=== PATIENT | male | born 1945 | race Hispanic/Latino ===

== ENCOUNTER 2020-11-20 16:18 | Emergency (ER) | payer MEDICARE ==
--- NOTE | 2020-11-20 18:09 | Emergency Department Report ---
HPI - General Chief Complaint: Altered Mental Status Time Seen by Provider: 11/20/20 17:48 - HPI HPI: Room 34 The patient is a 75-year-old male present with a chief complaint of fall headache and diarrhea. The patient is a poor historian and family is concerned about the onset of dementia. The patient's states he EMS was called today because the patient fell in the bathroom and they were unable to get him up. She states there was no loss of consciousness but the patient did have episodes of nausea and vomiting while on the floor. The states the patient was complaining of a headache today before the fall. The patient acknowledges this states he currently does not have a headache. The patient states he does not know why he was sent to the emergency department. Patient states he does not recall a fall earlier today. also notes the patient has had diarrhea for the past 2 to 3 months. There is been no history of fever or recent antibiotic use. Patient denies pain of any type currently. Of note the patient was recently diagnosed with a pituitary tumor and was told was too small to do anything about at this moment so it is just being observed ED Past Medical Hx - Past Medical History Previous Medical History?: No - Surgical History Past Surgical History?: No - Family History Family history: no significant - Social History Smoking Status: Never Smoker Substance Use Type: None - Medications Home Medications: Home Medications Medication Instructions Recorded Confirmed Last Taken Type Diphenoxylate/Atropine [Lomotil] 2 tab PO QID PRN #40 tablet 11/20/20 Unknown Rx levoFLOXacin [Levaquin TAB] 500 mg PO QDAY #10 tablet 11/20/20 Unknown Rx ED Review of Systems ROS: Stated complaint: DIAHERRA/DEHYDRATION Other details as noted in HPI Constitutional: denies: fever Eyes: denies: eye pain ENT: denies: throat pain Respiratory: no symptoms reported Cardiovascular: denies: chest pain Endocrine: no symptoms reported Gastrointestinal: nausea, vomiting, diarrhea. denies: abdominal pain Genitourinary: denies: dysuria Musculoskeletal: denies: back pain Neurological: headache Physical Exam - Physical Exam Vital Signs: Vital Signs 11/20/20 16:54 Temperature 97.9 F Pulse Rate 72 Respiratory 18 Rate Blood Pressure 140/83 O2 Sat by Pulse 97 Oximetry Physical Exam: GENERAL: The patient is well-developed well-nourished male lying on stretcher not appearing to be in acute distress. [] HEENT: Normocephalic. Atraumatic. Extraocular motions are intact. Patient has moist mucous membranes. NECK: Supple. Trachea midline CHEST/LUNGS: Clear to auscultation. There is no respiratory distress noted. HEART/CARDIOVASCULAR: Regular. There is no tachycardia. There is no gallop rub or murmur. ABDOMEN: Abdomen is soft, nontender. Patient has normal bowel sounds. There is no abdominal distention. SKIN: There is no rash. There is no edema. There is no diaphoresis. NEURO: The patient is awake, alert, and oriented. The patient is cooperative. The patient has no focal neurologic deficits. The patient has normal speech. Cranial nerves II through XII grossly intact MUSCULOSKELETAL: There is no evidence of acute injury. ED Course Vital Signs 11/20/20 16:54 Temperature 97.9 F Pulse Rate 72 Respiratory 18 Rate Blood Pressure 140/83 O2 Sat by Pulse 97 Oximetry ED Medical Decision Making - Lab Data Result diagrams: 11/20/20 18:06 11/20/20 18:06 Laboratory Tests 11/20/20 11/20/20 11/20/20 18:06 18:06 18:06 WBC 18.3 H RBC 5.83 H Hgb 17.6 H Hct 52.1 H MCV 89 MCH 30 MCHC 34 RDW 14.7 Plt Count 232 Lymph % (Auto) 8.9 L [place] % (Auto) 5.0 Eos % (Auto) 0.5 Baso % (Auto) 0.8 Lymph # (Auto) 1.6 [place] # (Auto) 0.9 H Eos # (Auto) 0.1 Baso # (Auto) 0.1 Seg Neutrophils % 84.8 H Seg Neutrophils # 15.5 H PT 13.3 INR 1.02 APTT 28.7 Sodium 138 Potassium 4.2 Chloride 103.0 Carbon Dioxide 24 Anion Gap 15 BUN 17 Creatinine 1.2 Estimated GFR 59 BUN/Creatinine Ratio 14 Glucose 203 H Calcium 9.1 Total Bilirubin 0.70 AST 20 ALT 23 Alkaline Phosphatase 71 Total Protein 6.7 Albumin 4.0 Albumin/Globulin Ratio 1.5 Lipase 35 Urine Color Urine Turbidity Urine pH Ur Specific [place] Urine Protein Urine Glucose (UA) Urine Ketones Urine Blood Urine Nitrite Urine Bilirubin Urine Urobilinogen Ur Leukocyte Esterase Urine WBC (Auto) Urine RBC (Auto) Urine Bacteria (Auto) 11/20/20 23:01 WBC RBC Hgb Hct MCV MCH MCHC RDW Plt Count Lymph % (Auto) [place] % (Auto) Eos % (Auto) Baso % (Auto) Lymph # (Auto) [place] # (Auto) Eos # (Auto) Baso # (Auto) Seg Neutrophils % Seg Neutrophils # PT INR APTT Sodium Potassium Chloride Carbon Dioxide Anion Gap BUN Creatinine Estimated GFR BUN/Creatinine Ratio Glucose Calcium Total Bilirubin AST ALT Alkaline Phosphatase Total Protein Albumin Albumin/Globulin Ratio Lipase Urine Color Yellow Urine Turbidity Clear Urine pH 6.0 Ur Specific [place] 1.046 H Urine Protein 30 mg/dl Urine Glucose (UA) Neg Urine Ketones Neg Urine Blood Lg Urine Nitrite Neg Urine Bilirubin Neg Urine Urobilinogen < 2.0 Ur Leukocyte Esterase Sm Urine WBC (Auto) 20.0 H Urine RBC (Auto) 150.0 Urine Bacteria (Auto) 1+ - Radiology Data Radiology results: report reviewed (CT abdomen pelvis, CT head, CT cervical spine), image reviewed (CT abdomen pelvis, CT head, CT cervical spine) Findings [address] [address] Cat Scan Report Signed Patient: MONICA PARKER MR#: [id number] : 1945 Acct:[id number] Age/Sex: 75 / M ADM Date: 11/20/20 Loc: ED Attending Dr: Ordering Physician: SYEDA ARELLANO MD Date of Service: 11/20/20 Procedure(s): CT abdomen pelvis w con Accession Number(s): [id number] cc: SYEDA ARELLANO MD CT ABDOMEN AND PELVIS WITH CONTRAST INDICATION / CLINICAL INFORMATION: Diarrhea. TECHNIQUE: Axial CT images were obtained through the abdomen and pelvis after IV contrast. All CT scans at this location are performed using CT dose reduction for ALARA by means of automated expos ure control. COMPARISON: None available. FINDINGS: LOWER CHEST: No significant abnormality LIVER: Suspected hepatic steatosis. GALLBLADDER/BILIARY TREE: Cholecystectomy. PANCREAS: No significant abnormality SPLEEN: No significant abnormality ADRENALS: No significant abnormality KIDNEYS / URETER: Bilateral renal cysts. Kidneys enhance symmetrically. No hydronephrosis. URINARY BLADDER: No significant abnormality REPRODUCTIVE ORGANS: No significant abnormality STOMACH / SMALL BOWEL: Stomach and small bowel are normal in caliber. No evidence of bowel inflammation. COLON: Colonic diverticulosis without evidence of diverticulitis. There is mild wall thickening of the sigmoid colon and rectum. This may be related to underdistention. The appendix is normal in caliber. LYMPH NODES: No significant adenopathy. VASCULATURE: Mild atherosclerotic calcification without acute abnormality. OTHER: No free air, free fluid, or focal fluid collection is identified. Small left fat-containing inguinal hernia. SKELETAL SYSTEM: Moderate degenerative changes of the spine. No acute osseous findings. IMPRESSION: 1. Mild wall thickening of the sigmoid colon and rectum, which may be related to underdistention or may reflect mild colitis. 2. Otherwise, no acute abnormality of the abdomen or pelvis. 3. Chronic, incidental findings as above. Signer Name: Isma Salter MD Signed: 11/20/2020 7:49 PM Workstation Name: [id number] Transcribed By: KASSY Dictated By: ISMA SALTER MD Electronically Authenticated By: ISMA SALTER MD Signed Date/Time: 11/20/201948 DD/ 43 TD/TT: CT head/brain wo con INDICATION / CLINICAL INFORMATION: 75 years Male; Headache nausea vomiting, fall. TECHNIQUE: Routine CT head without contrast. All CT scans at this location are performed using CT dose reduction for ALARA by means of automated exposure control. COMPARISON: None. 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 There is relative a more notable decrease signal along the anterior right basal ganglia also compatible with ischemic changes, likely chronic. There is mild cerebral atrophy with associated mild prominence of the ventricular system. The findings are c ompatible with a small focus of calcification along the posterior left parietal region near the vertex without significant mass effect. There is no clear CT evidence of acute intracranial hemorrhage or significant mass effect. ORBITS: No significant abnormality of visualized orbits. SINUSES / MASTOIDS: No significant abnormality in the visualized paranasal sinuses or mastoid air cells. CRANIOCERVICAL JUNCTION: No significant abnormality. ADDITIONAL FINDINGS: There is expansion of the sella with nodular soft tissue lesion measuring 1.8 cm AP in greatest dimensions. 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 IMPRESSION: 1. There is extensive microvascular angiopathy as detailed above without CT evidence of acute intracranial hemorrhage. 2. 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 Signer Name: Saeed Shea MD Signed: 11/20/2020 6:54 PM Workstation Name: [id number] CT cervical spine wo con INDICATION / CLINICAL INFORMATION: 75 years Male; Fall. TECHNIQUE: Axial CT images of the cervical spine were obtained. Sagittal and coronal reformatted images were produced. All CT scans at this location are performed using CT dose reduction for ALARA by means of automated exposure control. COMPARISON: None available. FINDINGS: POST-SURGICAL CHANGES: None. ALIGNMENT: There is slight curvature the cervical spine, convex toward the left. However, there is no significant spondylolisthesis. VERTEBRAE: There are multilevel mild degenerative the disc changes involving cervical spine. The motion degrades image quality. However, there is no CT evidence of acute fracture. INTRAVERTEBRAL DISCS: The spondylosis at C3-4 mildly effaces the ventral subarachnoid space. There is notable right facet and uncovertebral joint hypertrophy with marked right neural foraminal narrowing. There is moderate to marked right foraminal narrowing at C4-5. The spondylosis at C5-6 is greater on the left with encroachment on the left lateral recess. Additionally, there is moderate to marked left neural foraminal narrowing. The disc bulge at C6-7 appears to efface the ventral subarachnoid space. There is mild left foraminal narrowing. PARASPINAL SOFT TISSUES: There is heterogeneous prominence of the left lobe of the thyroid gland with scattered foci of calcification. The findings are nonspecific though may be secondary to goiter and correlation would be needed. No prevertebral soft tissue fluid collections are identified. ADDITIONAL FINDINGS: None. IMPRESSION: 1. There is no CT evidence of acute fracture involving the cervical spine. 2. There are multilevel degenerative changes as detailed above. Signer Name: Saeed Shea MD Signed: 11/20/2020 7:01 PM Workstation Name: [id number] - Differential Diagnosis Close head injury, enteritis, postcholecystectomy diarrhea Critical care attestation.: If time is entered above; I have spent that time in minutes in the direct care of this critically ill patient, excluding procedure time. ED Disposition Clinical Impression: Closed head injury, Diarrhea, UTI (urinary tract infection) Disposition: TO HOME OR SELFCARE Is pt being admited?: No Does the pt Need Aspirin: No Condition: Stable Instructions: Diarrhea, Adult, Urinary Tract Infection, Adult, [id number] Additional Instructions: Return to the emergency department should you develop worsening symptoms, inability to tolerate food or liquids, high fever or any other concerns Prescriptions: levoFLOXacin [Levaquin TAB] 500 mg PO QDAY #10 tablet Diphenoxylate/Atropine [Lomotil] 2 tab PO QID PRN #40 tablet PRN Reason: Diarrhea Referrals: [facility] [Provider Group] - 3-5 Days Time of Disposition: 23:50
[2020-11-20 18:26] LABS: Basophils # (Auto) 0.1 K/mm3 (0.0-0.1); Basophils % (Auto) 0.8 % (0.0-1.8); Eosinophils # (Auto) 0.1 K/mm3 (0.0-0.4); Eosinophils % (Auto) 0.5 % (0.0-4.3); Hematocrit 52.1 % (35.5-45.6); Hemoglobin 17.6 gm/dl (11.8-15.2); Lymphocytes # (Auto) 1.6 K/mm3 (1.2-5.4); Lymphocytes % (Auto) 8.9 % (13.4-35.0); Mean Corpuscular HGB Conc 34 % (32-34); Mean Corpuscular Volume 89 fl (84-94); Monocytes # (Auto) 0.9 K/mm3 (0.0-0.8); Platelet Count 232 K/mm3 (140-440); Red Blood Count 5.83 M/mm3 (3.65-5.03); Red Cell Distribution Width 14.7 % (13.2-15.2)
[2020-11-20 18:41] LABS: INR 1.02 (0.87-1.13); Partial Thromboplastin Time 28.7 Sec. (24.2-36.6)
[2020-11-20 18:48] LABS: Calcium 9.1 mg/dL (8.4-10.2)
--- NOTE | 2020-11-20 19:53 | Cat Scan Report ---
CT ABDOMEN AND PELVIS WITH CONTRAST INDICATION / CLINICAL INFORMATION: Diarrhea. TECHNIQUE: Axial CT images were obtained through the abdomen and pelvis after IV contrast. All CT sc ans at this location are performed using CT dose reduction for ALARA by means of automated exposure c ontrol. COMPARISON: None available. FINDINGS: LOWER CHEST: No significant abnormality LIVER: Suspected hepatic steatosis. GALLBLADDER/BILIARY TREE: Cholecystectomy. PANCREAS: No significant abnormality SPLEEN: No significant abnormality ADRENALS: No significant abnormality KIDNEYS / URETER: Bilateral renal cysts. Kidneys enhance symmetrically. No hydronephrosis. URINARY BLADDER: No significant abnormality REPRODUCTIVE ORGANS: No significant abnormality STOMACH / SMALL BOWEL: Stomach and small bowel are normal in caliber. No evidence of bowel inflammati on. COLON: Colonic diverticulosis without evidence of diverticulitis. There is mild wall thickening of th e sigmoid colon and rectum. This may be related to underdistention. The appendix is normal in caliber . LYMPH NODES: No significant adenopathy. VASCULATURE: Mild atherosclerotic calcification without acute abnormality. OTHER: No free air, free fluid, or focal fluid collection is identified. Small left fat-containing in guinal hernia. SKELETAL SYSTEM: Moderate degenerative changes of the spine. No acute osseous findings. IMPRESSION: 1. Mild wall thickening of the sigmoid colon and rectum, which may be related to underdistention or m ay reflect mild colitis. 2. Otherwise, no acute abnormality of the abdomen or pelvis. 3. Chronic, incidental findings as above. Signer Name: Chuck Salter MD Signed: 11/20/2020 7:49 PM Workstation Name: [id number]
--- NOTE | 2020-11-20 19:58 | Cat Scan Report ---
CT head/brain wo con INDICATION / CLINICAL INFORMATION: 75 years Male; Headache nausea vomiting, fall. TECHNIQUE: Routine CT head without contrast. All CT scans at this location are performed using CT dos e reduction for ALARA by means of automated exposure control. COMPARISON: None. 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 There is relative a more notable decrease signal along the anterior right b josé ganglia also compatible with ischemic changes, likely chronic. There is mild cerebral atrophy with associated mild prominence of the ventricular system. The finding s are compatible with a small focus of calcification along the posterior left parietal region near th e vertex without significant mass effect. There is no clear CT evidence of acute intracranial hemorrh age or significant mass effect. ORBITS: No significant abnormality of visualized orbits. SINUSES / MASTOIDS: No significant abnormality in the visualized paranasal sinuses or mastoid air pj ls. CRANIOCERVICAL JUNCTION: No significant abnormality. ADDITIONAL FINDINGS: There is expansion of the sella with nodular soft tissue lesion measuring 1.8 cm AP in greatest dimensions. 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 IMPRESSION: 1. There is extensive microvascular angiopathy as detailed above without CT evidence of acute intracr anial hemorrhage. 2. 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 Signer Name: Saeed Shea MD Signed: 11/20/2020 7:54 PM Workstation Name: [id number]
--- NOTE | 2020-11-20 20:06 | Cat Scan Report ---
CT cervical spine wo con INDICATION / CLINICAL INFORMATION: 75 years Male; Fall. TECHNIQUE: Axial CT images of the cervical spine were obtained. Sagittal and coronal reformatted images were pr oduced. All CT scans at this location are performed using CT dose reduction for ALARA by means of aut omated exposure control. COMPARISON: None available. FINDINGS: POST-SURGICAL CHANGES: None. ALIGNMENT: There is slight curvature the cervical spine, convex toward the left. However, there is no significant spondylolisthesis. VERTEBRAE: There are multilevel mild degenerative the disc changes involving cervical spine. The jesika on degrades image quality. However, there is no CT evidence of acute fracture. INTRAVERTEBRAL DISCS: The spondylosis at C3-4 mildly effaces the ventral subarachnoid space. There is notable right facet and uncovertebral joint hypertrophy with marked right neural foraminal narrowing . There is moderate to marked right foraminal narrowing at C4-5. The spondylosis at C5-6 is greater on the left with encroachment on the left lateral recess. Addition ally, there is moderate to marked left neural foraminal narrowing. The disc bulge at C6-7 appears to efface the ventral subarachnoid space. There is mild left foraminal narrowing. PARASPINAL SOFT TISSUES: There is heterogeneous prominence of the left lobe of the thyroid gland with scattered foci of calcification. The findings are nonspecific though may be secondary to goiter and correlation would be needed. No prevertebral soft tissue fluid collections are identified. ADDITIONAL FINDINGS: None. IMPRESSION: 1. There is no CT evidence of acute fracture involving the cervical spine. 2. There are multilevel degenerative changes as detailed above. Signer Name: Saeed Shea MD Signed: 11/20/2020 8:01 PM Workstation Name: [id number]
[2020-11-20 23:14] VITALS: BP 193/98
[2020-11-20 23:37] LABS: Bacteria,Urine 1+ /HPF (Negative); Bilirubin,Urine NEG (Negative); Blood,Urine LG (Negative); Color,Urine Yellow (Yellow); Urobilinogen,Urine < 2.0 mg/dL (<2.0)
[2020-11-20] MEDS ORDERED: levoFLOXacin 500 MG TAB PO ONE (23:42)
== END 2020-11-21 02:46 | disposition home or self-care (01) ==
LOC: ED 16:18
DX: S09.90XA Unspecified injury of head, initial encounter (principal); N39.0 Urinary tract infection, site not specified; R19.7 Diarrhea, unspecified; K57.30 Diverticulosis of large intestine without perforation or abscess without bleeding; Z79.2 Long term (current) use of antibiotics; Z79.899 Other long term (current) drug therapy; W19.XXXA Unspecified fall, initial encounter; Y93.89 Activity, other specified; Y92.89 Other specified places as the place of occurrence of the external cause; Y99.8 Other external cause status
CPT/HCPCS: 36415; 70450; 72125; 74177; 80053; 81001; 83690; 85025; 85610; 85730; 87076; 87086; 87186; 99284; Q9967